=== PATIENT | male | born 1995 | race Hispanic/Latino ===

== ENCOUNTER 2019-12-11 14:57 | Emergency (ER) | payer SELFPAY ==
--- NOTE | 2019-12-11 16:23 | RAD ---
LEFT FOOT THREE VIEWS: Date: 12-11-2019 Comparison: None History: Injury, trauma, pain. FINDINGS: There is no displaced fracture or evidence of dislocation. There is mild degenerative change within the dorsal aspect of the midfoot. There is mild soft tissue swelling overlying the dorsal aspect of the midfoot. IMPRESSION: Dorsal soft tissue swelling with no displaced fracture or dislocation seen. POS: [facility]
== END 2019-12-11 16:43 | disposition home or self-care (01) ==
LOC: ERS 14:57
DX: S90.32XA Contusion of left foot, initial encounter (principal); W31.89XA Contact with other specified machinery, initial encounter